=== PATIENT | female | born 1960 | race Caucasian/White ===

== ENCOUNTER → 2016-05-21 | Outpatient (CLI) | payer OTHER ==
--- NOTE | ~2016-05-21 | ECHO ---
Transthoracic Echocardiography Report (TTE) Demographics Patient Name MAYLIN BYNUM Date of Study 05/21/2016 Patient Number [id number] Visit Number [id number] Date of 1960 Room Number Accession Number [id number] Gender Female Age 55 year(s) Referring Isidro Lemon MD Completion Engineer Cristobal Whitaker Physician Physician Interpreting Deuce Sanchez Bottom Cager Physician Supervising Ordering Physician Isidro Lemon MD, MD/P Nurse Stress Gas Operator Conclusions Contractility Score Summary Normal Left Ventricular contractility was noted. Summary The estimated left ventricular ejection fraction is 60-65%. The right atrium is mildly dilated. Possible pleural effusion. Procedure Type of Study TTE procedure:2D Echocardiogram, M-Mode, Doppler , Color Doppler. Procedure Date Date: 05/21/2016 Start: 09:02 AM Study Location: Echo Lab Technical Quality: Excellent Indications:Bilateral lower extremity edema. Additional Indications:History of myocarditis Appropriate Use Criteria: 9 Patient Status: Routine HR: 65 bpm BP: 119/66 mmHg M-Mode/2D Measurements LV Diastolic Dimension: 4.52 cm LV Systolic Dimension: 3.04 cm LV Septum Diastolic: 0.95 cm LV PW Diastolic: 0.72 cm AO Root Dimension: 2.7 cm Cardiac Output: 4.4 l/min LA Dimension: 3 cm EF Estimated: 65 % LVOT: 1.8 cm LVOT VTI: 26.6 cm RV Base: 2.65 cm LV Stroke volume: 67.65 ml RV Length: 7.13 cm TAPSE: 2.3 cm TDI-S': 12 cm/s Doppler Measurements AV Peak Velocity: 1.63 m/s MV Peak E-Wave: 0.84 m/s AV Peak Gradient: 10.63 mmHg MV Peak A-Wave: 0.76 m/s AV Mean Gradient: 6 mmHg MV E/A Ratio: 1.11 LVOT Peak Velocity: 1.35 m/s MV P1/2t: 51 msec MV Deceleration Time: 187 msec TR Gradient:24.8 mmHg PV Peak Velocity: 0.78 m/s Estimated RAP:3 mmHg PV Peak Gradient: 2.43 mmHg Estimated RVSP: 28 mmHg Estimated PASP: 27.8 mmHg E' Septal Velocity: 0.1 m/s A' Septal Velocity: 0.08 m/s E' Lateral Velocity: 0.14 m/s A' Lateral Velocity: 0.12 m/s Findings Left Ventricle The left ventricle is normal in size . Diastolic assessment reveals normal relaxation. Right Ventricle Normal right ventricle structure and function. Left Atrium Normal left atrial size. Right Atrium The right atrium is mildly dilated. IVC measures 0.97 cm with inspiratory collapse. Mitral Valve Trivial mitral regurgitation by color Doppler. Aortic Valve Normal aortic valve structure and function. Tricuspid Valve Trivial tricuspid regurgitation by color Doppler with estimated RVSP of 28 mm hg. Pulmonic Valve Normal pulmonic valve structure and function. Pericardial Effusion No evidence of pericardial effusion. Miscellaneous Visualized portions of the aortic root and ascending aorta appear normal in size. Pleural Effusion Possible pleural effusion. Contractility Score LV regional wall motion:(0-Non visualized 1-Normal 2-Hypokinesis 3-Akinesis 4-Dyskinesis 5-Aneurysm) Signature dtt: LINDSEY PINTO dtd: 05/21/16 0902 Physician Self Edit
== END | disposition disaster alternative care site (69) ==
LOC: GCAR 08:54
DX: R60.0 Localized edema (principal); I72.9 Aneurysm of unspecified site; Z86.79 Personal history of other diseases of the circulatory system